=== PATIENT | male | born 1935 | race Caucasian/White ===

== ENCOUNTER → 2018-06-09 | Outpatient (CLI) | payer OTHER | END | disposition home or self-care (01) | LOC: OIH 15:32 | PROVIDERS: ATTEND Internal Medicine Cardiovascular Disease | DX: Z13.6 Encounter for screening for cardiovascular disorders (principal) | CPT/HCPCS: 75571 ==

== ENCOUNTER 2018-10-13 15:45 | Inpatient (IN) | payer OTHER ==
[~2018-10-13] VITALS: Ht 177.8 cm; Wt 77.9 kg
[2018-10-13 15:50] LABS: APPEARANCE,URINE Clear (CLEAR); BILIRUBIN,URINE Negative (NEGATIVE); COLOR,URINE Yellow (YELLOW); GLUCOSE, URINE (UA) Negative (NEGATIVE); KETONES,URINE Negative (NEGATIVE); LEUKOCYTE ESTERASE ,URINE Negative (NEGATIVE); NITRATE,URINE Negative (NEGATIVE); OCCULT BLOOD,URINE Negative (NEGATIVE); PROTEIN,URINE Negative (NEGATIVE)
[2018-10-13 15:55] LABS: CREATININE 1.9 mg/dL (0.5-1.5); POTASSIUM 4.2 mmol/L (3.5-5.1)
[2018-10-13 15:57] LABS: INR 1.03 (0.85-1.15); PARTIAL THROMBOPLASTIN TIME 28.5 SEC (26.3-35.5); PROTHROMBIN TIME 10.8 SEC (9.6-11.6)
[2018-10-13 16:55] VITALS: BP 149/57
[2018-10-13] MEDS ORDERED: FOSI20TA66 PO (17:07)
[2018-10-13] MEDS ORDERED: [UNRECOGNIZED DRUG - OTHER] OP (17:07)
[2018-10-13] MEDS ORDERED: NIFE30TA98 PO (17:07)
[2018-10-13] MEDS ORDERED: TIMOLOL OP (17:07)
[2018-10-13] MEDS ORDERED: PRESERVISION PO (17:07)
[2018-10-13] MEDS ORDERED: ACET-66 PO (17:07)
[2018-10-13] MEDS ORDERED: LATA2.5D2 OP (17:07)
[2018-10-16] VITALS (30 sets, daily range): BP systolic 126–164; BP diastolic 56–107
--- NOTE | 2018-10-16 08:05 | NUR ---
VALUABLES: PAT REFUSING TO REMOVE RING YELLOW COLOR COATED TO LEFT RING FINGER. STATES HAS NEVER REMOVED IT FOR THE PAST 65 YEARS AND WILL NOT REMOVE IT TODAY. INSTRUCTED WOULD NOTIFY DR. FREDY GOFF OF REFUSAL AND VERBALIZED GOOD UNDERSTANDING.
--- NOTE | 2018-10-16 08:15 | NUR ---
POTENTIAL FOR INFECTION: SHAVED RIGHT LEG / KNEE FOLLOWED BY WIPING WITH JIM: 2% CHLORHEXIDINE GLUCONATE CLOTH PATIENTS PRE-OP SKIN PREP PER TERA LUNA MA.
[2018-10-16] MEDS ORDERED: SODIUM CHLORIDE 0.9% 1000ML 1,000 ML IV ONE (08:20)
--- NOTE | 2018-10-16 08:29 | NUR ---
CONSULT: NOTIFIED DR. FREDY GOFF OF PATIENT REFUSING TO REMOVE RING YELLOW COLOR COATED TO LEFT RING FINGER. NO ORDERS GIVEN JUST TO DOCUMENT PATIENT REFUSING TO REMOVE.
[2018-10-16] MEDS ORDERED: CELECOXIB 200 MG CAP ONE (08:39)
[2018-10-16] MEDS ORDERED: ACETAMINOPHEN EXTRA STRENGTH 500 MG TABLET ONE (08:39)
[2018-10-16] MEDS ORDERED: OXYCODONE HCL 10 MG TAB.SR.12H PO ONE (08:40)
[2018-10-16] MEDS: CEFAZOLIN SODIUM 1 GM VIAL IVP ONE ×2 (08:46→10:36)
[2018-10-16] MEDS ORDERED: CEFAZOLIN SODIUM 1 GM VIAL ONE (08:57)
[2018-10-16] MEDS ORDERED: LIDOCAINE PF 2% 5ML ABBOJECT ONE (10:03)
[2018-10-16] MEDS ORDERED: PROPOFOL 10 MG/ML 20ML VIAL IV ONE (10:03)
[2018-10-16] MEDS ORDERED: FENTANYL CITRATE PF 50 MCG/1 ML 2ML VIAL ONE (10:03)
[2018-10-16] MEDS ORDERED: ROCURONIUM 10MG/1ML SYR 10 MG/ML ML ONE (10:03)
[2018-10-16] MEDS ORDERED: SUCCINYLCHOLINE 200MG/10ML SYR ONE (10:03)
[2018-10-16] MEDS ORDERED: ROPIVACAINE 0.5% 5MG/ML 30ML IJ ONE (10:08)
[2018-10-16] MEDS ORDERED: GLYCOPYRROLATE 1 MG/5 ML SYRINGE ONE (11:24)
[2018-10-16] MEDS ORDERED: CEFAZOLIN SODIUM 1 GM VIAL IRRIG ONE (11:25)
[2018-10-16] MEDS ORDERED: THROMBIN-JMI 5000 UNIT/VIAL TP ONE (11:37)
[2018-10-16] MEDS ORDERED: FERROUS FUMARATE 324 MG TABLET PO PRN (12:30)
[2018-10-16] MEDS ORDERED: TEMAZEPAM 15 MG CAPSULE PO PRN (12:30)
[2018-10-16] MEDS ORDERED: POTASSIUM CHLORIDE 10% ELIXIR 20 MEQ/15 ML UDCUP PO PRN (12:30)
[2018-10-16] MEDS ORDERED: POTASSIUM CHLORIDE 20 MEQ ERTAB PO PRN (12:30)
[2018-10-16] MEDS ORDERED: TRAMADOL HCL 50 MG TABLET PO PRN (12:30)
[2018-10-16] MEDS ORDERED: LIDOCAINE HCL-MPF 1% 2ML VIAL IVP PRN (12:30)
[2018-10-16] MEDS ORDERED: DiphenhydrAMINE HCL 50 MG/ML VIAL IVP PRN (12:30)
[2018-10-16] MEDS: ACETAMINOPHEN EXTRA STRENGTH 500 MG TABLET PO SCH ×2 (12:30→21:04)
[2018-10-16] MEDS ORDERED: CALCIUM CARBONATE 500 MG TABLET PO PRN (12:30)
[2018-10-16] MEDS ORDERED: POTASSIUM CHLORIDE 20MEQ/100ML 100 ML IV PRN (12:30)
[2018-10-16] MEDS ORDERED: ONDANSETRON HCL 4 MG/2 ML VIAL IVP PRN (12:30)
[2018-10-16] MEDS ORDERED: NEOSTIGMINE 5MG/5ML SYR IV ONE (12:35)
[2018-10-16] MEDS ORDERED: MEPERIDINE-PF 25 MG/ML SYG ONE (13:49)
[2018-10-16] MEDS ORDERED: ONDANSETRON HCL 4 MG/2 ML VIAL ONE (13:56)
--- NOTE | 2018-10-16 14:30 | NUR ---
POST SURGERY PATIENT RECEIVED FROM PACU VIA HOSPITAL BED IN STABLE CONDITION. SPOUSE IS IN ROOM. BOTH WERE ORIENTED TO ROOM AND USE OF CALL LIGHT. POST OP VITAL SIGNS HAVE BEEN INITIATED. DRESSING TO THE RIGHT KNEE IS DRY AND INTACT. HE IS ON 2L/MIN VIA NASAL CANNULA. BED IS IN LOWEST POSITION AND LOCKED WITH PERSONAL ITEMS WITHIN REACH. WILL CONTINUE TO MONITOR.
[2018-10-16] MEDS: OXYCODONE HCL 5 MG TAB PO PRN (16:08)
[2018-10-16] MEDS: CEFAZOLIN SODIUM 1 GM VIAL IVP SCH (18:01)
[2018-10-16] MEDS: SODIUM CHLORIDE 0.9% 1000ML 1,000 ML IV SCH (18:02)
--- NOTE | 2018-10-16 18:35 | NUR ---
cm note met with patient and son adrian, pt states resides athome with spouse, independent with adls and self care. no dme. discussed md orders for rehab, pt states he [place] to go [place] [facility] and if not approved does not wish to go to a snf . informed that transport is usually by private vehicle if pt able to ambulate pt and son in agreement. referral faxed to [facility], pending eval. Addendum: 10/16/18 at 1837 by SHANNAN COLINDRES CM Amended: Links added.
[2018-10-16] MEDS: ASPIRIN 325 MG TABLET PO SCH (20:59)
[2018-10-16] MEDS: CELECOXIB 200 MG CAP PO SCH (20:59)
[2018-10-16] MEDS: LATANOPROST 2.5 ML DROPS OP SCH (21:00)
[2018-10-16] MEDS: PREGABALIN 25 MG CAP PO SCH (21:00)
[2018-10-17] MEDS: OXYCODONE HCL 5 MG TAB PO PRN ×5 (00:52→22:57)
[2018-10-17] MEDS: CEFAZOLIN SODIUM 1 GM VIAL IVP SCH (00:54)
[2018-10-17] MEDS: SODIUM CHLORIDE 0.9% 1000ML 1,000 ML IV SCH ×2 (01:58→08:28)
[2018-10-17 03:50] VITALS: BP 131/58
[2018-10-17 04:22] LABS: HEMATOCRIT 29.9 % (42-54); MEAN CORPUSCULAR HEMOGLOBIN 30.5 pg (27.0-33.0); MEAN CORPUSCULAR HGB CONC 33.8 g/dL (32.0-36.0); MEAN CORPUSCULAR VOLUME 90.4 fL (79-99); NUCLEATED RED BLOOD CELLS 0.1 % (0.0-0.19); PLATELET COUNT (AUTO) 182 K/uL (130-400); RED BLOOD CELL COUNT(AUTO) 3.31 MIL/uL (4.50-6.20); RED CELL DISTRIBUTION WIDTH 13.8 % (11.0-15.5)
[2018-10-17] MEDS: ACETAMINOPHEN EXTRA STRENGTH 500 MG TABLET PO SCH ×3 (04:30→20:09)
[2018-10-17 04:34] LABS: CREATININE 1.7 mg/dL (0.5-1.5); POTASSIUM 4.4 mmol/L (3.5-5.1)
[2018-10-17 07:39] VITALS: BP 133/60
[2018-10-17] MEDS: CELECOXIB 200 MG CAP PO SCH ×2 (08:32→20:08)
[2018-10-17] MEDS: NIFEDIPINE ER 30 MG TAB PO SCH (08:32)
[2018-10-17] MEDS: ASPIRIN 325 MG TABLET PO SCH ×2 (08:32→20:07)
[2018-10-17] MEDS: PREGABALIN 25 MG CAP PO SCH ×2 (08:33→20:08)
[2018-10-17] MEDS: POLYETHYLENE GLYCOL 3350 17 GM POWD.PACK PO SCH (08:34)
[2018-10-17] MEDS: FAMOTIDINE 20MG TAB 20 MG TAB PO SCH (08:34)
[2018-10-17] MEDS: TIMOLOL OP SCH ×2 (08:36→20:52)
[2018-10-17] MEDS ORDERED: [UNRECOGNIZED DRUG - OTHER] OP PRN (09:00)
[2018-10-17] MEDS: TAMSULOSIN HCL 0.4 MG CAP.ER.24H PO SCH (09:00)
[2018-10-17 11:14] VITALS: BP 118/59
[2018-10-17] MEDS: FOSINOPRIL SODIUM 20 MG PO SCH (12:00)
[2018-10-17 16:16] VITALS: BP 150/68
[2018-10-17 19:08] VITALS: BP 141/77
[2018-10-17] MEDS: LATANOPROST 2.5 ML DROPS OP SCH (20:52)
[2018-10-17 23:15] VITALS: BP 132/61
[2018-10-18 03:29] VITALS: BP 150/61
[2018-10-18] MEDS: ACETAMINOPHEN EXTRA STRENGTH 500 MG TABLET PO SCH ×2 (04:10→12:16)
[2018-10-18 08:00] VITALS: BP 155/66
[2018-10-18] MEDS: POLYETHYLENE GLYCOL 3350 17 GM POWD.PACK PO SCH (08:38)
[2018-10-18] MEDS: CELECOXIB 200 MG CAP PO SCH (08:38)
[2018-10-18] MEDS: ASPIRIN 325 MG TABLET PO SCH (08:38)
[2018-10-18] MEDS: FAMOTIDINE 20MG TAB 20 MG TAB PO SCH (08:39)
[2018-10-18] MEDS: NIFEDIPINE ER 30 MG TAB PO SCH (08:39)
[2018-10-18] MEDS: TAMSULOSIN HCL 0.4 MG CAP.ER.24H PO SCH (08:39)
[2018-10-18] MEDS: PREGABALIN 25 MG CAP PO SCH (08:39)
[2018-10-18] MEDS: TIMOLOL OP SCH (08:47)
[2018-10-18] MEDS: OXYCODONE HCL 5 MG TAB PO PRN (08:47)
[2018-10-18 11:00] VITALS: BP 129/67
[2018-10-18] MEDS ORDERED: GLUCAGON 1MG KIT 1 MG ML IM PRN (12:00)
[2018-10-18] MEDS ORDERED: DEXTROSE 50%-WATER 50 ML DISP.SYRIN IV PRN (12:00)
[2018-10-18] MEDS: FOSINOPRIL SODIUM 20 MG PO SCH (12:00)
--- NOTE | 2018-10-18 12:42 | NUR ---
[facility]- Update Spoke to Maddi loredo/ [facility] who states still [place] [facility] from [facility]. Notified Pao loredo/ [facility] that patient will be ready to discharge today, pending auth. Asked if any additional information is needed to expedite this request. Pending response. CM to continue to follow. CD Addendum: 10/18/18 at 1243 by YANY MATTHEWS CM Amended: Links added.
[2018-10-18 16:00] VITALS: BP 145/52
[2018-10-18] MEDS ORDERED: INSULIN HUMULIN R 100 UNIT/ML 3ML SQ SCH (16:30)
--- NOTE | 2018-10-18 20:00 | NUR ---
DISCHARGE DISCHARGE TEACHING DONE WITH PATIENT AND FAMILY USING TEACHBACK METHOD, VERALIZED UNDERSTANDING. NO NOTED SOB OR DISTRESS. NEW MEDICATION ADMINISTRATION TEACHING DONE WITH PATIENT, VERBALIZED UNDERSTANDING. PT AWARE OF NEED TO ATTEND DR. GOFF APPOINTMENT. DRESSING TO KNEE DRY AND INTACT. DRESSING CHANGED PER DR. GOFF, INCISION IS DRY AND INTACT. DRESSING TEACHING DONE WITH PATIENT, VERBALIZED UNDERSTANDING. IV REMOVED, CATH TIP INTACT. PENDING TO BE TRANSFERRED OUT VIA PRIVATE VEHICLE. REPORT CALLED TO [facility] IN PATIENT REHAB.
[2018-10-19] MEDS ORDERED: BISACODYL 10 MG SUPP.RECT RC PRN (12:30)
== END 2018-10-18 20:30 | DRG 470 ==
LOC: DAHIP 10-16 07:06 → 4AH 10-16 13:33
PROVIDERS: ADMIT Orthopaedic Surgery; ATTEND Orthopaedic Surgery
PROC: 0SRC0J9 Replacement of Right Knee Joint with Synthetic Substitute, Cemented, Open Approach (ICD-10-PCS; principal; 2018-10-16 10:17)
DX: M17.11 Unilateral primary osteoarthritis, right knee (principal); E78.5 Hyperlipidemia, unspecified; E11.9 Type 2 diabetes mellitus without complications; I10 Essential (primary) hypertension; G89.29 Other chronic pain; D64.9 Anemia, unspecified; G47.30 Sleep apnea, unspecified; G60.3 Idiopathic progressive neuropathy; H40.9 Unspecified glaucoma; Z87.891 Personal history of nicotine dependence; Z98.49 Cataract extraction status, unspecified eye; Z88.8 Allergy status to other drugs, medicaments and biological substances; Z83.3 Family history of diabetes mellitus
CPT/HCPCS: 36415; 80048; 81003; 82948; 85027; 85610; 85730; 88305; 88311; A4218; G0378; J0330; J0690; J2001; J2175; J2405; J2704; J2710; J2795; J3010; J3490; J7030

== ENCOUNTER → 2019-12-11 | Outpatient (CLI) | payer OTHER ==
[~2019-12-11] MED LIST: ASPI-556 PO; BETA1TAB20 PO; FERR-82 PO; FOSI20TA66 PO; LATA2.5D2 OP; METO-408 PO; MULT-1367 PO; NIFE30TA98 PO; OMEP20CA12 PO; PRESERVISION PO; TIMOLOL MALEATE OP; TIMOLOL OP; VALS320T16 PO; [UNRECOGNIZED DRUG - OTHER] OP
[2019-12-11 15:08] LABS: CREATININE 1.6 mg/dL (0.5-1.5)
== END | disposition home or self-care (01) ==
LOC: LAB 14:10
PROVIDERS: ATTEND Internal Medicine Cardiovascular Disease
DX: I71.02 Dissection of abdominal aorta (principal)
CPT/HCPCS: 36415; 82565; 84520

== ENCOUNTER → 2019-12-19 | Outpatient (CLI) | payer OTHER ==
[2019-12-19 11:06] LABS: CREATININE 1.6 mg/dL (0.5-1.5)
== END | disposition home or self-care (01) ==
LOC: LAB 09:04
PROVIDERS: ATTEND Internal Medicine Cardiovascular Disease
DX: I71.4 Abdominal aortic aneurysm, without rupture (principal)
CPT/HCPCS: 36415; 82565; 84520

== ENCOUNTER 2019-12-27 06:43 | Day surgery (SDC) | payer OTHER ==
[~2019-12-27 06:43] MED LIST changes: -ASPI-556 PO; -BETA1TAB20 PO; -FERR-82 PO; -METO-408 PO; -MULT-1367 PO; -OMEP20CA12 PO; -TIMOLOL MALEATE OP; -VALS320T16 PO
[2019-12-27] MEDS ORDERED: IOHEXOL 350 MG/ML 100ML INFUS..BTL IV ONE (07:02)
[2019-12-27 07:30] VITALS: BP 171/67
[2019-12-27] MEDS ORDERED: SODIUM CHLORIDE 0.9% 1000ML 1,000 ML IV ONE (09:09)
[2019-12-27 11:30] VITALS: BP 174/82
== END 2019-12-27 12:00 | disposition home or self-care (01) ==
LOC: DAH 06:43 → RAH 06:43 → EDSTATUS 07:00 → RAH 12:00
PROVIDERS: ATTEND Internal Medicine Cardiovascular Disease
DX: I71.02 Dissection of abdominal aorta (principal); E11.40 Type 2 diabetes mellitus with diabetic neuropathy, unspecified; I10 Essential (primary) hypertension; K21.9 Gastro-esophageal reflux disease without esophagitis; D50.9 Iron deficiency anemia, unspecified; F17.200 Nicotine dependence, unspecified, uncomplicated
CPT/HCPCS: 74174; 96360; 96361; A4215; A4216; A4221; A4222; A4223 ×3; A4606; A4663; J7030; Q9967

== ENCOUNTER 2019-12-31 08:00 | Inpatient (IN) | payer OTHER ==
[~2019-12-31] VITALS: Ht 152.4 cm; Wt 74.8 kg
[~2019-12-31 08:00] MED LIST changes: -FOSI20TA66 PO; -LATA2.5D2 OP; -TIMOLOL OP; -[UNRECOGNIZED DRUG - OTHER] OP
[2020-01-07 09:05] LABS: BASOPHILS % (AUTO) 0.6 % (0.0-5.0); EOSINOPHILS % (AUTO) 5.5 % (0.0-8.0); HEMATOCRIT 37.5 % (42-54); LYMPHOCYTES % (AUTO) 22.4 % (21.0-51.0); MEAN CORPUSCULAR HEMOGLOBIN 30.1 pg (27.0-33.0); MEAN CORPUSCULAR HGB CONC 31.5 g/dL (32.0-36.0); MEAN CORPUSCULAR VOLUME 95.7 fL (79-99); MONOCYTES % (AUTO) 9.1 % (3.0-13.0); PLATELET COUNT (AUTO) 219 K/uL (130-400); RED BLOOD CELL COUNT(AUTO) 3.92 MIL/uL (4.50-6.20); RED CELL DISTRIBUTION WIDTH 13.6 % (11.0-15.5); WHITE BLOOD COUNT (AUTO) 7.1 K/uL (4.8-10.8)
[2020-01-07 09:16] LABS: CREATININE 1.5 mg/dL (0.5-1.5); POTASSIUM 4.2 mmol/L (3.5-5.1)
[2020-01-07 09:19] LABS: INR 0.99 (0.85-1.15); PARTIAL THROMBOPLASTIN TIME 28.9 SEC (26.3-35.5); PROTHROMBIN TIME 10.7 SEC (9.6-11.6)
[2020-01-07 09:55] LABS: APPEARANCE,URINE Clear (CLEAR); BILIRUBIN,URINE Negative (NEGATIVE); COLOR,URINE Yellow (YELLOW); GLUCOSE, URINE (UA) Negative (NEGATIVE); KETONES,URINE Negative (NEGATIVE); LEUKOCYTE ESTERASE ,URINE Negative (NEGATIVE); NITRATE,URINE Negative (NEGATIVE); OCCULT BLOOD,URINE Negative (NEGATIVE); PROTEIN,URINE POS 1+ mg/dL (NEGATIVE)
[2020-01-07 10:06] LABS: BACTERIA,URINE Rare /HPF (None Seen); RBC,URINE 0-1 /HPF (0-1); SQUAMOUS EPITHELIAL CELL,UR Rare /HPF (0-2); WBC,URINE 0-1 /HPF (0-1)
--- NOTE | 2020-01-09 13:46 | NUR ---
report called [facility] for dr albarado and informed of cbc, ua, bmp and chest x ray abnormals. no new orders received.
[2020-01-09 13:56] VITALS: BP 155/70
[2020-01-09] MEDS ORDERED: MULT-1367 PO (15:15)
[2020-01-09] MEDS ORDERED: ASPI-556 PO (15:15)
[2020-01-09] MEDS ORDERED: FERR-82 PO (15:15)
[2020-01-09] MEDS ORDERED: BETA1TAB20 PO (15:15)
[2020-01-09] MEDS ORDERED: TIMOLOL MALEATE OP (15:15)
[2020-01-09] MEDS ORDERED: VALS320T16 PO (15:15)
[2020-01-09] MEDS ORDERED: OMEP20CA12 PO (15:15)
--- NOTE | 2020-01-09 15:45 | NUR ---
orders called mr rodriguez pa with dr albarado for clarification orders on antibiotic. 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
[2020-01-10] VITALS (19 sets, daily range): BP systolic 130–195; BP diastolic 51–100
[2020-01-10] MEDS ORDERED: SODIUM CHLORIDE 0.9% 1000ML 1,000 ML IV ONE (05:40)
[2020-01-10] MEDS ORDERED: CEFAZOLIN SODIUM 1 GM VIAL IVP SCH (06:00)
[2020-01-10] MEDS ORDERED: METO-408 PO (06:29)
[2020-01-10] MEDS ORDERED: CEFAZOLIN SODIUM 1 GM VIAL ONE (06:48)
[2020-01-10] MEDS ORDERED: HEPARIN SODIUM 1000UNIT/ML 10ML VIAL ONE ×2 (06:48→08:13)
[2020-01-10] MEDS ORDERED: IOHEXOL 350 MG/ML 100ML INFUS..BTL IV ONE (06:51)
[2020-01-10] MEDS ORDERED: SUCCINYLCHOLINE CHLORIDE 20 MG/ML 10 ML VIAL ONE (06:53)
[2020-01-10] MEDS ORDERED: LIDOCAINE PF 2% 5ML ABBOJECT ONE (06:53)
[2020-01-10] MEDS ORDERED: ROCURONIUM 10MG/1ML SYR 10 MG/ML ML ONE (06:54)
[2020-01-10] MEDS ORDERED: PROPOFOL 10 MG/ML 20ML VIAL IV ONE (06:54)
[2020-01-10] MEDS ORDERED: FENTANYL CITRATE PF 50 MCG/1 ML 2ML VIAL ONE (06:54)
[2020-01-10] MEDS ORDERED: NOREPINEPHRINE BITARTRATE 1 MG/1 ML ML IV ONE (07:25)
[2020-01-10] MEDS ORDERED: GLYCOPYRROLATE 0.2 MG/ML 5 ML VIAL ONE (08:13)
[2020-01-10] MEDS ORDERED: NEOSTIGMINE 5MG/5ML SYR IV ONE (09:12)
[2020-01-10] MEDS ORDERED: HYDRALAZINE HCL 20 MG/ML VIAL ONE (09:28)
[2020-01-10] MEDS ORDERED: MORPHINE SULFATE 5 MG/ML VIAL IV PRN (09:45)
[2020-01-10] MEDS ORDERED: ACETAMINOPHEN 325 MG TAB PO PRN (09:45)
[2020-01-10] MEDS ORDERED: TEMAZEPAM 30 MG CAP PO PRN (09:45)
[2020-01-10] MEDS ORDERED: MORPHINE SULFATE 4 MG/1ML SYG IV PRN (09:45)
[2020-01-10] MEDS ORDERED: ONDANSETRON HCL 4 MG/2 ML VIAL IV PRN (09:45)
[2020-01-10] MEDS ORDERED: HYDRALAZINE HCL 20 MG/ML VIAL IV PRN (09:45)
[2020-01-10] MEDS ORDERED: NOREPINEPHRINE 4MG/NS 250ML 250 ML IV PRN (09:45)
--- NOTE | 2020-01-10 10:51 | NUR ---
[facility] HERE TO SEE PT AT BEDSIDE
[2020-01-10] MEDS: SODIUM CHLORIDE 0.9% 1000ML 1,000 ML IV SCH ×2 (11:44→19:56)
--- NOTE | 2020-01-10 13:00 | NUR ---
LEFT RADIAL A-LINE REMOVED INTACT. NO HEMATOMA OR BLEEDING. GAUZE DRESSING APPLIED
[2020-01-10] MEDS: CEFAZOLIN SODIUM 1 GM VIAL IVP SCH ×2 (15:11→22:15)
--- NOTE | 2020-01-10 18:58 | NUR ---
[facility] CM spoke to pt's daughter Sheri discussed dc plans. Pt is semi-independent prior to admission, lives at home w/spouse. Pt has a cane, cpap. Denies any other equipments/services. Feels safe to go back home, still drives, spouse and daughter able to assist with transportation and needs as necessary. DC plan to home once stable. CM to cont to follow up. Addendum: 01/10/20 at 1900 by PILI STERN LVN CM Amended: Links added.
--- NOTE | 2020-01-10 19:21 | NUR ---
HAND OFF REPORT GIVEN TO ALFREDO COHN
[2020-01-10] MEDS: **HM** PRESERVISION AREDS PO SCH (20:19)
[2020-01-10] MEDS: MULTIVITAMIN TABLET PO SCH (20:29)
[2020-01-10] MEDS: NIFEDIPINE ER 30 MG TAB PO SCH (20:32)
[2020-01-10] MEDS ORDERED: ASPIRIN 81 MG EC TAB PO SCH (21:00)
[2020-01-10] MEDS ORDERED: PRESERVISION PO SCH (21:00)
[2020-01-11] VITALS (10 sets, daily range): BP systolic 153–172; BP diastolic 71–81
[2020-01-11 04:56] LABS: HEMATOCRIT 33.5 % (42-54); MEAN CORPUSCULAR HGB CONC 31.9 g/dL (32.0-36.0); MEAN CORPUSCULAR VOLUME 93.8 fL (79-99); RED BLOOD CELL COUNT(AUTO) 3.57 MIL/uL (4.50-6.20); RED CELL DISTRIBUTION WIDTH 13.5 % (11.0-15.5); WHITE BLOOD COUNT (AUTO) 10.3 K/uL (4.8-10.8)
[2020-01-11 05:05] LABS: CREATININE 1.5 mg/dL (0.5-1.5); POTASSIUM 4.3 mmol/L (3.5-5.1)
[2020-01-11] MEDS: NIFEDIPINE ER 30 MG TAB PO SCH (08:36)
[2020-01-11] MEDS: MULTIVITAMIN TABLET PO SCH (08:36)
[2020-01-11] MEDS: **HM** PRESERVISION AREDS PO SCH (08:39)
[2020-01-11] MEDS ORDERED: METOPROLOL SUCCINATE 50 MG TAB.SR.24H PO SCH (09:00)
[2020-01-11] MEDS ORDERED: LOSARTAN 100 MG TABLET PO SCH (09:00)
[2020-01-11] MEDS ORDERED: PANTOPRAZOLE SODIUM 40 MG TABLET.DR PO SCH (09:00)
[2020-01-11] MEDS ORDERED: TIMOLOL MALEATE OP SCH (09:00)
[2020-01-12] MEDS ORDERED: FERROUS SULFATE 325 MG TABLET.DR PO SCH (09:00)
== END 2020-01-11 14:00 | disposition home or self-care (01) | DRG 272 ==
LOC: EDSTATUS 01-07 08:00 → DAHIP 01-10 05:36
PROVIDERS: ADMIT Internal Medicine; ATTEND Internal Medicine
PROC: B4101ZZ Fluoroscopy of Abdominal Aorta using Low Osmolar Contrast (ICD-10-PCS; 2020-01-10)
PROC: B4181ZZ Fluoroscopy of Bilateral Renal Arteries using Low Osmolar Contrast (ICD-10-PCS; 2020-01-10)
PROC: B4141ZZ Fluoroscopy of Superior Mesenteric Artery using Low Osmolar Contrast (ICD-10-PCS; 2020-01-10)
PROC: B41J1ZZ Fluoroscopy of Other Lower Arteries using Low Osmolar Contrast (ICD-10-PCS; 2020-01-10)
PROC: 04V00EZ Restriction of Abdominal Aorta with Branched or Fenestrated Intraluminal Device, One or Two Arteries, Open Approach (ICD-10-PCS; principal; 2020-01-10 07:00)
DX: I71.4 Abdominal aortic aneurysm, without rupture (principal); D50.9 Iron deficiency anemia, unspecified; K21.9 Gastro-esophageal reflux disease without esophagitis; F17.200 Nicotine dependence, unspecified, uncomplicated; I10 Essential (primary) hypertension; N40.0 Benign prostatic hyperplasia without lower urinary tract symptoms; E11.9 Type 2 diabetes mellitus without complications; Z20.828 Contact with and (suspected) exposure to other viral communicable diseases; Z88.8 Allergy status to other drugs, medicaments and biological substances; Z83.3 Family history of diabetes mellitus; Z82.3 Family history of stroke; Z80.9 Family history of malignant neoplasm, unspecified
CPT/HCPCS: 34701; 34713; 36415; 71045; 80048; 81001; 82948; 85025; 85027; 85347; 85610; 85730; 86850; 86900; 86901; 86922; 93005; A4344; A4606; C1725; C1760; C1769; C1887; C1894; G0378; J0330; J0360; J0690; J1644; J2001; J2704; J2710; J3010; J3490; J7030; J7040; J7120; Q9967; U0003

== ENCOUNTER → 2020-02-12 | Outpatient (CLI) | payer OTHER ==
[~2020-02-12] MED LIST changes: +ASPI-556 PO; +BETA1TAB20 PO; +FERR-82 PO; +IOHEXOL 350 MG/ML 100ML INFUS..BTL IV ONE; +METO-408 PO; +MULT-1367 PO; +OMEP20CA12 PO; +TIMOLOL MALEATE OP; +VALS320T16 PO
== END | disposition home or self-care (01) ==
LOC: RAH 08:30
PROVIDERS: ATTEND Internal Medicine Cardiovascular Disease
DX: I71.4 Abdominal aortic aneurysm, without rupture (principal); M47.816 Spondylosis without myelopathy or radiculopathy, lumbar region; N28.1 Cyst of kidney, acquired; I71.02 Dissection of abdominal aorta; Z95.1 Presence of aortocoronary bypass graft
CPT/HCPCS: 74174; Q9967